=== PATIENT | female | born 1990 | race American Indian/Alaskan Native ===

== ENCOUNTER 2019-02-12 22:24 | Emergency (ER) | payer SELFPAY ==
[2019-02-12 23:25] VITALS: BP 108/70
--- NOTE | 2019-02-13 03:04 | Emergency Department Report ---
Chief Complaint: Sore Throat Stated Complaint: ALLERGIC REACTION Time Seen by Provider: 02/13/19 02:27 - HPI History of Present Illness: Patient is a 28-year-old female presents to emergency room with complaints of a itchy dry throat that began today. She states that she ate some salmon today and was not sure if was related to her symptoms. She denies any facial swelling or rash or difficulty breathing or throat swelling. She states she has a past medical history of anemia. She denies any allergies medications. Vitals are normal On exam Nontoxic appearing no acute distress Normal oropharynx, uvula is midline, no uvular edema, no exudates, no tonsillar hypertrophy Normal TMs and canals bilaterally Pale, boggy turbinates bilaterally Normal heart sounds, no rubs, gallops, murmurs normal breath sounds bilaterally no wheezing, rhonchi, rales, stridor Small shallow ulceration to the inside of the left, lower lip examination consistent with seasonal allergies/allergic rhinitis and canker sore no signs of allergic reaction, no angioedema pt is presenting with a non medical emergency at this time discussed over the counter medications with pt and advised pt to follow up with a PCP and return to the ED for any new or worsening symptoms - Exam Vital Signs: Vital Signs 02/12/19 23:22 Temperature 98.5 F Pulse Rate 81 Respiratory 16 Rate Blood Pressure 108/70 O2 Sat by Pulse 100 Oximetry MSE screening note: Focused history and physical exam performed. ED Disposition for MSE Clinical Impression: Mouth ulcer Allergic rhinitis Qualifiers: Allergic rhinitis trigger: unspecified Allergic rhinitis seasonality: unspecified Qualified Code(s): J30.9 - Allergic rhinitis, unspecified Disposition: MED SCREENING EXAM-LEFT Is pt being admited?: No Does the pt Need Aspirin: No Condition: Stable Instructions: Canker Sores (ED), Allergic Rhinitis (ED) Additional Instructions: Please use Flonase, Zyrtec, Orajel [id number]. May do warm saltwater gargles, drink warm tea, use [id number] throat relief spray. Follow-up with the primary care doctor in the next 2-3 days. Increase your fluid intake. Return to the emergency room for any new or worsening symptoms. Referrals: [facility] [Outside] - 2-3 Days SOURAV BAIN MD [Staff Physician] - 2-3 Days Time of Disposition: 03:05 Print Language: LEBANESE
[2019-02-13] MEDS ORDERED: ACETAMINOPHEN 325 MG TAB PO ONE (03:48)
[2019-02-13] MEDS ORDERED: ACETAMINOPHEN 325 MG TAB ONE (03:52)
== END 2019-02-13 03:52 | disposition left against medical advice (07) ==
LOC: ED 22:24
DX: K12.1 Other forms of stomatitis (principal); J30.9 Allergic rhinitis, unspecified